=== PATIENT | female | born 1960 ===

== ENCOUNTER 2018-06-07 07:59 | Day surgery (SDC) | payer MEDICAID ==
--- NOTE | 2018-06-03 16:52 | Opthalmology H&P ---
Ophthalmology H&P H&P Chief Complaint: decreased vision in left eye HPI Vision Affects Ability to: read, drive Past Ocular History: retinal problems - macular edema/ PDR OU HPI Narrative Blurry Vision Exam Visual Acuity: OD 20/40 OS COUNTING FINGERS Tension: OD 16 OS 18 Eye Exam: normal OU: external exam, palpebral fissure-width, marginal reflex distance, levator function, corneas, anterior chambers, lens; findings: fundus exam - POOR VIEW OS MACULAR EDEMA OU Assessment/Plan Treatment Plan: cataract extraction w/ lens implant Goals of Treatment: improvement of vision, enhance quality of life Attestation Attestation The risks and benefits of the surgery as well as alternative procedures were explained to the patient in detail. Foreign Alvarado MD Jun 03, 2018 16:52
--- NOTE | 2018-06-03 16:54 | Pre-Procedure Note/Attestation ---
Pre-Procedure Note/Attestation Complete Prior to Procedure Planned Procedure: left Procedure Narrative: Cataract Extraction With Intraocular Implant Indications for Procedure Pre-Operative Diagnosis: Cataract left eye Attestation I attest that I discussed the nature of the procedure; its benefits; risks and complications; and alternatives (and the risks and benefits of such alternatives ), prior to the procedure, with the patient (or the patient's legal publications sales representative). I attest that, if there was a reasonable possibility of needing a blood transfusion, the patient (or the patient's legal publications sales representative) was given the [facility] standardized written summary, pursuant to the Jigar Adona Blood Safety Act ([place] Health and Safety Code # 1645, as amended). I attest that I re-evaluated the patient just prior to the surgery and that there has been no change in the patient's H&P, except as documented below: Foreign Alvarado MD Jun 03, 2018 16:54
[~2018-06-07] VITALS: Ht 170.2 cm; Wt 80.3 kg
[2018-06-07] VITALS (8 sets, daily range): BP systolic 113–148; BP diastolic 61–85
[~2018-06-07 07:59] MED LIST: Akten 3.5% 1ml Btl LEFT EYE ONE; Proparacaine 0.5% Opth Soln 15ml LEFT EYE ONE; Tetracaine 0.5% Opth 4ml Soln LEFT EYE ONE
[2018-06-07] MEDS: Cyclopentolate 1% Opth Sol 2ml LEFT EYE SCH ×3 (11:49→12:05)
[2018-06-07] MEDS: Tobramycin Op Soln 0.3% 5ml LEFT EYE SCH ×3 (11:49→12:03)
[2018-06-07] MEDS: Tropicamide 1% Opth 15ml Soln LEFT EYE SCH ×3 (11:50→12:03)
[2018-06-07] MEDS: Diclofenac Sod 0.1% Op Soln LEFT EYE SCH ×3 (11:50→12:03)
[2018-06-07] MEDS: Phenylephrine 10% Opth Soln 5ml LEFT EYE SCH ×3 (11:50→12:03)
[2018-06-07] MEDS ORDERED: AMLODIPINE BESY10 MG ORAL (12:17)
[2018-06-07] MEDS ORDERED: GLIMEPIRIDE1 MG ORAL (12:17)
[2018-06-07] MEDS ORDERED: LEVOTHYROXINE125 MCG ORAL (12:17)
[2018-06-07] MEDS ORDERED: ATORVASTATIN CA40 MG ORAL (12:17)
[2018-06-07] MEDS ORDERED: LOSARTAN-HCTZ1 EAC1 ORAL (12:17)
[2018-06-07] MEDS ORDERED: JANUMET 50-1,01 EACH ORAL (12:17)
[2018-06-07] MEDS ORDERED: Dexamethasone 4mg/ml vial ONE (13:30)
[2018-06-07] MEDS ORDERED: NS Irrig 1000ml ONE (13:30)
[2018-06-07] MEDS ORDERED: Maxitrol Opth Oint 3.5gm ONE (13:30)
[2018-06-07] MEDS ORDERED: Propofol 200mg/20ml IV ONE (13:30)
[2018-06-07] MEDS ORDERED: Midazolam 2mg/2ml Inj ONE (13:30)
[2018-06-07] MEDS ORDERED: LR 1000ml ONE (13:30)
[2018-06-07] MEDS ORDERED: Pred Forte 1% Opth Susp 1ml ONE (13:30)
[2018-06-07] MEDS ORDERED: fentaNYL 100 mcg/2 mL IV ONE (13:30)
[2018-06-07] MEDS ORDERED: Sterile Water Irrig 1000ml IRRIG ONE (13:30)
[2018-06-07] MEDS ORDERED: Pilocarpine 1% Opth 15ml Soln ONE (13:30)
[2018-06-07] MEDS ORDERED: LR 1000ml 1,000 ML IVLG SCH (13:33)
--- NOTE | 2018-06-07 13:33 | Anethesia Preoperative Eval ---
Anesthesia Pre-op PMH/ROS General Date of Evaluation: Jun 07, 2018 Time of Evaluation: 13:28 Anesthesiologist: Yuki ASA Score: ASA 3 Mallampati Score Class I : Soft palate, uvula, fauces, pillars visible Class II: Soft palate, uvula, fauces visible Class III: Soft palate, base of uvula visible Class IV: Only hard plate visible Mallampati Classification: Class II Surgeon: Jenny Diagnosis: L eye cataract Surgical Procedure: L eye cataract extraction Anesthesia History: none Family History: no anesthesia problems Allergies: Coded Allergies: No Known Allergies (Unverified , 06/07/18) Medications: see eMAR Patient NPO?: Yes Past Medical History Cardiovascular: Reports: HTN; Denies: CAD, CO, valve dz, arrhythmia, other Pulmonary: Denies: asthma, COPD, ALEX, other Gastrointestinal/Genitourinary: Reports: GERD; Denies: CRI, ESRD, other Neurologic/Psychiatric: Reports: depression/anxiety; Denies: dementia, CVA, TIA, other Endocrine: Reports: DM, hypothyroidism; Denies: steroids, other HEENT: Reports: cataract (L), cataract (R); Denies: glaucoma, METLAKATLA (L), METLAKATLA (R), other Hematology/Immune: Reports: anemia - mild; Denies: DVT, bleeding disorder, other Musculoskeletal/Integumentary: Reports: DJD; Denies: OA, RA, DDD, edema, other PMH Narrative: as above PSxH Narrative: see chart Anesthesia Pre-op Phys. Exam Physician Exam Last Vital Signs Date Time Temp Pulse Resp B/P (MAP) Pulse Ox O2 Delivery O2 Flow Rate FiO2 06/07/18 12:00 Room Air 06/07/18 11:59 98.0 68 18 113/61 98 Constitutional: NAD Neurologic: CN 2-12 intact Cardiovascular: RRR, no M/R/G Respiratory: CTA Gastrointestinal: S/NT/ND Airway Exam Mallampati Score: Class II MO: limited Neck: flexible ROM: limited Teeth: missing Dentures: no upper, no lower Anesthesia Pre-op A/P Labs see chart Studies Pre-op Studies: EKG - NSR Risk Assessment & Plan Assessment: ASA 3 Plan: Saúl Delgado MD Jun 07, 2018 13:33
[2018-06-07] MEDS ORDERED: fentaNYL 100 mcg/2 mL IV PRN (13:45)
[2018-06-07] MEDS ORDERED: Sodium Hyaluronate 14 mg/ml 0.85ml ONE (14:00)
[2018-06-07] MEDS ORDERED: BSS 500ml btl ONE (14:00)
[2018-06-07] MEDS ORDERED: BSS 15ml BTL ONE (14:00)
[2018-06-07] MEDS ORDERED: EPINEPHrine 1mg/1ml Amp ONE (14:00)
[2018-06-07] MEDS ORDERED: Povidone-Iodine 5% opth solution ONE (14:00)
--- NOTE | 2018-06-07 14:43 | Immediate Post-Op Evaluation ---
Immediate Post-Op Evalulation Immediate Post-Op Evalulation Procedure: L eye cataract extraction with IOL Date of Evaluation: Jun 07, 2018 Time of Evaluation: 14:42 IV Fluids: 300 Blood Products: none Estimated Blood Loss: none Urinary Output: none Blood Pressure Systolic: 146 Blood Pressure Diastolic: 79 Pulse Rate: 67 Respiratory Rate: 20 O2 Sat by Pulse Oximetry: 98 Temperature (Fahrenheit): 97.7 Pain Score (1-10): 1 Nausea: No Vomiting: No Complications none Patient Status: awake, patent, none Hydration Status: adequate Saúl Mirza MD Jun 07, 2018 14:43
--- NOTE | 2018-06-07 16:22 | 48 Hour Post Anesthesia Eval ---
Post Anesthesia Evaluation Procedure: L eye cataract extraction with IOL Date of Evaluation: Jun 07, 2018 Time of Evaluation: 16:21 Blood Pressure Systolic: 148 0: 76 Pulse Rate: 68 Respiratory Rate: 20 Temperature (Fahrenheit): 97.6 O2 Sat by Pulse Oximetry: 98 Airway: patent Nausea: No Vomiting: No Pain Intensity: 1 Hydration Status: adequate Cardiopulmonary Status: stable Mental Status/LOC: patient returned to baseline Follow-up Care/Observations: n/a Post-Anesthesia Complications: none Follow-up care needed: ready to discharge Saúl Mirza MD Jun 07, 2018 16:22
--- NOTE | 2018-06-08 12:45 | Brief Operative Note ---
Immediate Post Operative Note Operative Note Chief Complaint: blurry vision Pre-op Diagnosis: Cataract left eye Procedure: Phaco with IOL Post-op Diagnosis: Pseudophakia Post-op Diagnosis: same as pre-op Findings: consistent w/pre-op dx studies Surgeon: Jenny Anesthesiologist: Yuki Anesthesia: MAC Specimen: none Complications: none Condition: stable Fluids: LR Estimated Blood Loss: none Drains: hemovac Implant(s) used?: Yes Foreign Alvarado MD Jun 08, 2018 12:45
--- NOTE | 2018-06-08 12:47 | Operative Note - PDOC ---
Operative Note Operative Note Date of Operation/Procedure: Jun 07, 2018 Chief Complaint: blurry vision Pre-op Diagnosis: Cataract left eye Procedure: Phaco with IOL Post-op Diagnosis: Pseudophakia Post-op Diagnosis: same as pre-op Operative Findings: consistent w/pre-op dx studies Surgeon: Jenny Anesthesiologist: Yuki Anesthesia: MAC Specimen: none Complications: none Condition: stable Fluids: LR Estimated Blood Loss: none Drains: hemovac Implant(s) used?: Yes Indications for Procedure cataract Description of Procedure This patient has been complaining visually significant cataract in the affected eye with the best corrected visual acuity under moderate glare conditions worse. The patient complains of difficulties with glare in performing activities of daily living and wants to manage personal affairs with comfort and accuracy and see well enough to move with safety at home and outdoors. The risks, benefits and alternatives of the procedure were discussed with the patient in the office prior to scheduling surgery. All questions from the patient were answered after the surgical procedure was explained in detail. The risks of the procedure as explained to the patient include, but are not limited to, pain, infection, bleeding, loss of vision, retinal detachment, need for further surgery, loss of lens nucleus, double vision, etc. Alternative procedures were discussed which include, to do nothing or seek a second opinion. Informed consent for this procedure was obtained from the patient. The patient was referred to a primary care physician for a cardiopulmonary clearance prior to surgery, after proper evaluation was done patient was properly scheduled for outpatient surgery. The patient was brought to the operating room where the anesthesiologist established I.V. lines and cardiac monitoring leads. Mild intravenous sedation was administered. The patient was then prepared with a 5% solution of povidone -iodine to the conjunctival fornix and lashes, and a 5% solution of povidone- iodine to the lids and periorbital skin. The patient was then draped in the usual sterile fashion. A lid speculum was then placed in the operative eye. A keratome blade was then used to create a biplanar incision into the anterior chamber. Viscoelastics was then instilled into the anterior chamber. A capsulorrhexis was then fashioned with an utrata forceps followed by G-27 cannula for hydrodissection and hydro delineation of the lens nucleus. Paracentesis incision was made at 3 o'clock with sharp blade. The phacoemulsification unit, after being properly adjusted and tested, was then used to emulsify the nucleus followed by aspiration and irrigation of residual cortical material. Healon was then instilled into the anterior chamber. The corneal wound was then enlarged to the size of the optic with the dinh keratome blade. The intraocular lens was then inspected for right power and size and thought to be satisfactory. Then the lens was gently placed in the capsular bag. Positioning within the capsular bag was confirmed by direct visualization. Optic centration was accomplished with a Sinskey hook. Viscoelastics was removed from the anterior chamber using the irrigation and aspiration unit. The corneal wound was then tested for leaks and none were found. The lid speculum were then removed. Sponge and needle counts were correct. An eye patch and shield were placed over the operative eye. The patient was taken to the recovery room in stable condition. There were no complications. The patient tolerated the procedure well. The patient was then transferred to the ambulatory surgery unit in stable and satisfactory condition , was given detailed written instructions and asked to follow up in the office the next day. Foreign Alvarado MD Jun 08, 2018 12:47
--- NOTE | 2018-06-09 19:33 | Physician Query ---
--------- THIS DOCUMENT IS A PERMANENT PART OF THE MEDICAL RECORD --------- PLEASE COMPLETE DOCUMENT BEFORE SIGNING Dear Dr. BRINK Date: 06/09/18 Clinical Services Director/CDS Name: MEGHANA, KASSANDRA Exercise your independent professional judgment when responding to the query. Questions asked do not imply a particular answer is desired or expected. We greatly appreciate your clarification on this issue. CLINICAL DOCUMENTATION STATES: Date of Operation/Procedure: Jun 07, 2018 Chief Complaint: blurry vision Pre-op Diagnosis: Cataract left eye Procedure: Phaco with IOL Post-op Diagnosis: Pseudophakia Post-op Diagnosis: same as pre-op Operative Findings: consistent w/pre-op dx studies Please respond to the following question: Is there a diagnosis specific to these symptoms or values? If so please state below. PLEASE SPECIFY IF KNOWN THE TYPE OF CATARACT IN LEFT EYE PHYSICIAN RESPONSE: LATHA BRINK M.D DATE & TIME MTDD
== END 2018-06-07 16:20 | disposition home or self-care (01) ==
LOC: SUR 07:59
DX: H25.042 Posterior subcapsular polar age-related cataract, left eye (principal); I10 Essential (primary) hypertension; K21.9 Gastro-esophageal reflux disease without esophagitis; F32.9 Major depressive disorder, single episode, unspecified; F41.9 Anxiety disorder, unspecified; E11.9 Type 2 diabetes mellitus without complications; E03.9 Hypothyroidism, unspecified; M19.90 Unspecified osteoarthritis, unspecified site; D64.9 Anemia, unspecified
CPT/HCPCS: 66984; J0171; J1100; J2250; J2704; J3010; J3370; V2632; Z7512; 94003; 94150